=== PATIENT | female | born 1995 | race Caucasian/White ===

== ENCOUNTER 2017-05-10 13:33 | Emergency (ER) | payer OTHER ==
[2017-05-10 13:47] VITALS: BP 108/64; PULSE 76; RESP 16; TEMP 98.2; O2SAT 99
--- NOTE | 2017-05-10 14:08 | ED PDOC ---
Lower Extremity Pain/Injury Time Seen by Provider: 05/10/17 13:53 Chief Complaint (Nursing): Lower Extremity Problem/Injury Chief Complaint (Provider): Right ankle pain History Per: Patient History/Exam Limitations: no limitations Onset/Duration Of Symptoms: Days (1) Current Symptoms Are (Timing): Still Present Additional Complaint(s): Patient is a 22 y/o female with no significant past medical history presenting to the emergency department for right ankle pain and swelling since this morning after tripping over some stairs. Reports that it is painful to put weight on the foot. Denies taking pain medication, pain or injuries elsewhere, or other complaints. PCP: none provided. Past Medical History Reviewed: Historical Data, Nursing Documentation, Vital Signs Vital Signs: Last Vital Signs Temp 98.2 F 05/10/17 13:45 Pulse 76 05/10/17 13:45 Resp 16 05/10/17 13:45 BP 108/64 05/10/17 13:45 Pulse Ox 99 05/10/17 13:45 - Medical History PMH: No Chronic Diseases - Surgical History Surgical History: No Surg Hx - Family History Family History: States: No Known Family Hx - Living Arrangements Living Arrangements: With Family - Social History Current smoker - smoking cessation education provided: No Ex-Smoker (has not smoked in the last 12 months): No Alcohol: None Drugs: Denies - Home Medications Home Medications: Ambulatory Orders Medication Instructions Recorded Nitrofurantoin Macrocrystals 100 mg PO BID #14 cap 05/24/15 [Macrobid] Famotidine [Pepcid] 20 mg PO DAILY #14 tab 10/31/15 Amoxicillin/Clavulanate [Augmentin 1 tab PO BID #20 tab 05/09/16 875 MG-125 MG] Docosanol [Abreva] 1 cre TP 5XD #1 unit 05/09/16 - Allergies Allergies/Adverse Reactions: Allergies Allergy/AdvReac Type Severity Reaction Status Date / Time No Known Allergies Allergy Verified 05/09/16 14:40 Review of Systems ROS Statement: Except As Marked, All Systems Reviewed And Found Negative Musculoskeletal: Positive for: Other (right ankle pain and swelling) Physical Exam - Reviewed Nursing Documentation Reviewed: Yes Vital Signs Reviewed: Yes - Physical Exam Appears: Positive for: Well, Non-toxic, No Acute Distress Head Exam: Positive for: NORMAL INSPECTION Skin: Positive for: Normal Color. Negative for: Rash Eye Exam: Positive for: Normal appearance Extremity: Positive for: Normal ROM (full rom right ankle with pain), Swelling ( and tenderness of lateral malleolus of right ankle, nontender right foot) Neurologic/Psych: Positive for: Alert, Oriented (x3), Gait (steady). Negative for: Motor/Sensory Deficits - Laboratory Results Urine POC: Negative - ECG O2 Sat by Pulse Oximetry: 99 (RA) Pulse Ox Interpretation: Normal - Other Rad Right ankle x-ray X-Ray: Interpreted by Me, Viewed By Me X-Ray Interpretation: no fx, no dis Medical Decision Making Medical Decision Making: Time: 14:03 Initial impression: Right ankle injury Initial plan: ED Urine Motrin 600 mg PO Right ankle X-ray Reevaluation X-ray is negative for fracture or dislocation. Aircast applied. Crutches declined. Patient was instructed to ice and elevate affected area and take NSAIDs for pain as needed. She was referred to podiatry clinic for follow-up. Scribe Attestation: Documented by Simin Elmore, acting as a scribe for MATILDE Gaines. Provider Scribe Attestation: All medical record entries made by the Scribe were at my direction and personally dictated by me. I have reviewed the chart and agree that the record accurately reflects my personal performance of the history, physical exam, medical decision making, and the department course for this patient. I have also personally directed, reviewed, and agree with the discharge instructions and disposition. Procedures - Splinting Location: right ankle Pre-Made Type: aircast Pre-Proc Neuro Vasc Exam: normal Post-Proc Neuro Vasc Exam: normal Disposition - Clinical Impression Clinical Impression: Ankle sprain - Patient ED Disposition Is Patient to be Admitted: No Counseled Patient/Family Regarding: Studies Performed, Diagnosis, Need For Followup - Disposition Referrals: Podiatry Clinic [Outside] Disposition: Routine/Home Disposition Time: 14:57 Condition: STABLE Additional Instructions: Ice, rest and elevate affected area. Take [id number] Tylenol or Advil as needed for pain. Follow-up with podiatry clinic for any persistent symptoms. Instructions: Ankle Sprain (ED), Ankle Stirrup Splint (ED) Forms: [employer] (Amharic), [facility] ED School/Work Excuse
--- NOTE | 2017-05-10 14:59 | RAD ---
PROCEDURE: Right Ankle Radiographs. HISTORY: trauma COMPARISON: None FINDINGS: BONES: Bone alignment and mineralization are normal. There is no acute displaced fracture or bone destruction. JOINTS: Normal. Ankle mortise maintained. Talar dome intact SOFT TISSUES: There is mild lateral soft tissue swelling. OTHER FINDINGS: None. IMPRESSION: No acute fracture or dislocation. Mild lateral soft tissue swelling.
== END 2017-05-10 16:42 | disposition home or self-care (01) ==
LOC: H.ER 13:33
DX: S93.401A Sprain of unspecified ligament of right ankle, initial encounter (principal); W18.49XA Other slipping, tripping and stumbling without falling, initial encounter

== ENCOUNTER 2017-07-09 22:00 | Emergency (ER) | payer SELFPAY ==
[2017-07-09 22:09] VITALS: BP 121/63; PULSE 105; RESP 16; TEMP 97.1; O2SAT 97
[2017-07-09] MEDS ORDERED: Sodium Chloride 0.9% 1,000 ML IV STA (22:25)
--- NOTE | 2017-07-09 22:31 | ED PDOC ---
HPI: Abdomen Time Seen by Provider: 07/09/17 22:16 Chief Complaint (Nursing): Abdominal Pain Chief Complaint (Provider): Nausea, Vomiting, Diarrhea, Abdominal Pain History Per: Patient History/Exam Limitations: no limitations Onset/Duration Of Symptoms: Hrs (about 5 hours PIPE OR [employer]ST[employer]) Outside of [place] travel?: No Location Of Pain/Discomfort: Other ("Upper stomach") Associated Symptoms: denies: Fever, Chills Additional Complaint(s): Patient is a 22 y/o female with no past medical history who presents to the ED complaining of nausea, vomiting, diarrhea, and abdominal pain in her upper stomach since about 5 hours [employer]IPE [employer]. Patient states her son had similar symptoms and denies any fever, chills, or recent travel. She reports 5 episodes of non- bloody vomiting and 3 episodes of watery, non-bloody diarrhea. She also reports vomit was initially food colored, but is now just yellow. PCP: NO FAMILY PROVIDER Past Medical History Reviewed: Historical Data, Nursing Documentation, Vital Signs Vital Signs: Last Vital Signs Temp 97.1 F L 07/09/17 22:07 Pulse 105 H 07/09/17 22:07 Resp 16 07/09/17 22:07 BP 121/63 07/09/17 22:07 Pulse Ox 97 07/09/17 22:46 - Medical History PMH: No Chronic Diseases - Surgical History Surgical History: No Surg Hx - Family History Family History: States: No Known Family Hx, Unknown Family Hx - Home Medications Home Medications: Ambulatory Orders Medication Instructions Recorded Nitrofurantoin Macrocrystals 100 mg PO BID #14 cap 05/24/15 [Macrobid] Famotidine [Pepcid] 20 mg PO DAILY #14 tab 10/31/15 Amoxicillin/Clavulanate [Augmentin 1 tab PO BID #20 tab 05/09/16 875 MG-125 MG] Docosanol [Abreva] 1 cre TP 5XD #1 unit 05/09/16 Ondansetron [Zofran] 4 mg PO Q8H #12 tab 07/10/17 - Allergies Allergies/Adverse Reactions: Allergies Allergy/AdvReac Type Severity Reaction Status Date / Time No Known Allergies Allergy Verified 05/09/16 14:40 Review of Systems ROS Statement: Except As Marked, All Systems Reviewed And Found Negative Constitutional: Negative for: Fever, Chills Gastrointestinal: Positive for: Nausea, Vomiting, Abdominal Pain, Diarrhea Physical Exam - Reviewed Nursing Documentation Reviewed: Yes Vital Signs Reviewed: Yes - Physical Exam Appears: Positive for: No Acute Distress Head Exam: Positive for: ATRAUMATIC, NORMOCEPHALIC Skin: Positive for: Normal Color, Warm, Dry Eye Exam: Positive for: Normal appearance, EOMI, PERRL Neck: Positive for: Normal, Painless ROM, Supple Cardiovascular/Chest: Positive for: Regular Rate, Rhythm. Negative for: Murmur Respiratory: Positive for: Normal Breath Sounds. Negative for: Respiratory Distress Gastrointestinal/Abdominal: Positive for: Soft, Tenderness (Epigastrium). Negative for: Guarding, Rebound Back: Positive for: Normal Inspection. Negative for: L CVA Tenderness, R CVA Tenderness, Vertebral Tenderness Extremity: Positive for: Normal ROM. Negative for: Pedal Edema, Deformity Neurologic/Psych: Positive for: Alert, Oriented (x3). Negative for: Motor/ Sensory Deficits - Laboratory Results Result Diagrams: 07/09/17 22:54 07/09/17 22:54 - ECG O2 Sat by Pulse Oximetry: 97 (RA) Pulse Ox Interpretation: Normal Medical Decision Making Medical Decision Makin:24 Initial Impression: Viral gastroenteritis with Gastritis Initial Plan: --Labs --ED Urine --ED Urine Dipstick --Sodium Chloride 0.9% IV 1,000 mls/hr --Pantoprazole 40 mg IVP --Zofran Inj 4 mg IVP 00:30 Pt. is feeling much better, no longer nauseated, tolerating PO, abdominal pain has resolved. Instructed to keep up fluid intake and f/u in clinic. Return precautions discussed. Scribe Attestation: Documented by Francoise Marsh, acting as a scribe for Jackson Nova MD Provider Scribe Attestation: All medical record entries made by the Scribe were at my direction and personally dictated by me. I have reviewed the chart and agree that the record accurately reflects my personal performance of the history, physical exam, medical decision making, and the department course for this patient. I have also personally directed, reviewed, and agree with the discharge instructions and disposition. Disposition - Clinical Impression Clinical Impression: Gastroenteritis - Patient ED Disposition Is Patient to be Admitted: No - Disposition Referrals: [facility] [Outside] Disposition: Routine/Home Disposition Time: 00:32 Condition: IMPROVED Prescriptions: Ondansetron [Zofran] 4 mg PO Q8H #12 tab Instructions: Gastroenteritis (ED) Forms: [employer] (Ukrainian)
[2017-07-09 22:57] LABS: BASO % 0.2 % (0.0-2.0); EOS # 0.1 K/uL (0.0-0.7); EOS % 0.4 % (0.0-4.0); LYMPH # 0.7 K/uL (1.0-4.3); MEAN CELL VOLUME 86.4 fl (81.0-99.0); MEAN CORPUSCULAR HEMOGLOBIN 28.1 pg (27.0-31.0); MEAN CORPUSCULAR HGB CONC 32.5 g/dL (33.0-37.0); MEAN PLATELET VOLUME 8.4 fl (7.2-11.7); MONO # 0.9 K/uL (0.0-0.8); MONO % 6.2 % (0.0-10.0); NEUT # 12.6 K/uL (1.8-7.0); NEUT % 88.2 % (50.0-75.0); PLATELET COUNT 286 K/uL (130-400); RED CELL DISTRIBUTION WIDTH 13.4 % (11.5-14.5); WHITE BLOOD COUNT 14.3 K/uL (4.8-10.8)
[2017-07-09 23:18] LABS: GFR AFRICAN-AMERICAN > 60; NEUTROPHIL 84 % (42-75); TOTAL CELLS COUNTED 100
[2017-07-09 23:23] LABS: BLOOD UREA NITROGEN 16 mg/dl (7-17); CALCIUM 9.5 mg/dL (8.4-10.2); CARBON DIOXIDE 28 mmol/L (22-30); CHLORIDE 102 mmol/L (98-107); GLUCOSE,RANDOM 106 mg/dL (65-105); POTASSIUM 4.7 MMOL/L (3.6-5.0); SODIUM 139 mmol/l (132-148)
== END 2017-07-10 00:46 | disposition home or self-care (01) ==
LOC: H.ER 22:00
DX: K29.70 Gastritis, unspecified, without bleeding (principal)
CPT/HCPCS: 80048; 81025; 85025; 96361; 96374; 96375; 99283; C9113; J2405; J7040

== ENCOUNTER 2018-05-20 02:21 | Emergency (ER) | payer SELFPAY ==
[2018-05-20 03:15] VITALS: BMI 27.4
[2018-05-20 03:17] VITALS: BP 120/80; PULSE 67; RESP 18; TEMP 98; O2SAT 100
[2018-05-20] MEDS ORDERED: Sodium Chloride 0.9% 1,000 ML IV STA (03:32)
--- NOTE | 2018-05-20 03:42 | ED PDOC ---
HPI: Abdomen Time Seen by Provider: 05/20/18 03:21 Chief Complaint (Nursing): Abdominal Pain Chief Complaint (Provider): Epigastric pain History Per: Patient History/Exam Limitations: no limitations Onset/Duration Of Symptoms: Days Location Of Pain/Discomfort: Epigastric Quality Of Discomfort: Sharp, Burning Associated Symptoms: Nausea, Vomiting. 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 Past Medical History Vital Signs: Last Vital Signs Temp 98.0 F 05/20/18 03:15 Pulse 67 05/20/18 03:15 Resp 18 05/20/18 03:15 BP 120/80 05/20/18 03:15 Pulse Ox 100 05/20/18 03:15 - Family History Family History: States: Unknown Family Hx - Home Medications Home Medications: Ambulatory Orders Medication Instructions Recorded Nitrofurantoin Macrocrystals 100 mg PO BID #14 cap 05/24/15 [Macrobid] Famotidine [Pepcid] 20 mg PO DAILY #14 tab 10/31/15 Amoxicillin/Clavulanate [Augmentin 1 tab PO BID #20 tab 05/09/16 875 MG-125 MG] Docosanol [Abreva] 1 cre TP 5XD #1 unit 05/09/16 Ondansetron [Zofran] 4 mg PO Q8H #12 tab 07/10/17 Famotidine [Pepcid] 20 mg PO BID #28 tab 05/20/18 - Allergies Allergies/Adverse Reactions: Allergies Allergy/AdvReac Type Severity Reaction Status Date / Time No Known Allergies Allergy Verified 05/20/18 03:15 Physical Exam - Reviewed Nursing Documentation Reviewed: Yes Vital Signs Reviewed: Yes - Physical Exam Appears: Positive for: Well, Non-toxic, No Acute Distress Head Exam: Positive for: ATRAUMATIC, NORMAL INSPECTION, NORMOCEPHALIC Skin: Positive for: Normal Color, Warm, DRY Eye Exam: Positive for: Normal appearance ENT: Positive for: Normal ENT Inspection Neck: Positive for: Normal, Painless ROM Cardiovascular/Chest: Positive for: Regular Rate, Rhythm Respiratory: Positive for: CNT, Normal Breath Sounds Gastrointestinal/Abdominal: Positive for: Soft, Tenderness (epigastric ). Negative for: Normal Exam Back: Positive for: Normal Inspection Extremity: Positive for: Normal ROM Neurologic/Psych: Positive for: Alert, Oriented - Laboratory Results Result Diagrams: 05/20/18 04:00 05/20/18 04:00 - ECG O2 Sat by Pulse Oximetry: 100 Medical Decision Making Medical Decision Making: Pt reports feeling better on re-evaluation. Disposition - Clinical Impression Clinical Impression: Gastritis - Patient ED Disposition Is Patient to be Admitted: No Counseled Patient/Family Regarding: Diagnosis, Need For Followup, Rx Given - Disposition Referrals: [facility] [Outside] Disposition: Routine/Home Disposition Time: 05:40 Condition: GOOD Prescriptions: Famotidine [Pepcid] 20 mg PO BID #28 tab Instructions: Gastritis (DC) Forms: [facility] (Bahamian)
[2018-05-20 04:44] LABS: BASO % 0.3 % (0.0-2.0); EOS # 0.1 K/uL (0.0-0.7); EOS % 0.8 % (0.0-4.0); HEMOGLOBIN 12.6 g/dL (12.0-16.0); LYMPH # 2.5 K/uL (1.0-4.3); LYMPH % 16.3 % (20.0-40.0); MEAN CORPUSCULAR HEMOGLOBIN 28.2 pg (27.0-31.0); MEAN CORPUSCULAR HGB CONC 33.2 g/dL (33.0-37.0); MEAN PLATELET VOLUME 8.5 fl (7.2-11.7); MONO # 0.7 K/uL (0.0-0.8); MONO % 4.8 % (0.0-10.0); NEUT # 11.8 K/uL (1.8-7.0); NEUT % 77.8 % (50.0-75.0); RBC 4.47 Mil/uL (3.80-5.20); RED CELL DISTRIBUTION WIDTH 13.8 % (11.5-14.5); WHITE BLOOD COUNT 15.1 K/uL (4.8-10.8)
[2018-05-20 04:53] LABS: ALB/GLOB RATIO 1.2 (1.0-2.1); ALBUMIN 4.2 g/dL (3.5-5.0); ALT/SGPT 25 U/L (9-52); AST/SGOT 23 U/L (14-36); BLOOD UREA NITROGEN 15 mg/dl (7-17); CALCIUM 9.4 mg/dL (8.4-10.2); GFR NON-AFRICAN AMERICAN > 60; LIPASE 116 U/L (23-300)
== END 2018-05-20 06:21 | disposition home or self-care (01) ==
LOC: H.ER 02:21
DX: K29.70 Gastritis, unspecified, without bleeding (principal)
CPT/HCPCS: 80053; 81025; 83690; 85025; 96360; 99283; J2405; J7030

== ENCOUNTER 2018-08-14 11:48 | Emergency (ER) | payer SELFPAY ==
[2018-08-14 20:58] LABS: SQUAMOUS EPITHIAL 5 /hpf (0-5); URINE BILIRUBIN NEGATIVE (NEGATIVE); URINE BLOOD NEGATIVE (NEGATIVE); URINE CLARITY SLIGHTY-CLOUDY (Clear); URINE COLOR YELLOW (YELLOW); URINE GLUCOSE (UA) NEG (NEGATIVE); URINE LEUKOCYTE ESTERASE NEG Leu/uL (Negative); URINE PROTEIN NEGATIVE (NEGATIVE)
== END 2018-08-14 15:40 | disposition home or self-care (01) ==
LOC: H.ER 11:48
DX: H66.91 Otitis media, unspecified, right ear (principal)

== ENCOUNTER 2018-08-16 17:53 | Emergency (ER) | payer BC ==
[2018-08-16 17:53] VITALS: BMI 27.4
[2018-08-16 19:42] VITALS: RESP 18; O2SAT 100
--- NOTE | 2018-08-16 21:29 | ED PDOC ---
HPI: Fever Time Seen by Provider: 08/16/18 19:59 Fever Onset Was: 08/16/18 The Fever Was Measured: Oral Recent Sick Contacts: No Symptoms Associated With Fever: None Additional Comments: Pt presents to the ED complaining of fever; pt is afebrile at 97.8. She was seen two days ago in the ED and treated for Otitis Media with augmentin. Pt indicates that she has taken the medicatin for two days and is not getting better; pt denies NVD or any other symptoms including body ache Past Medical History Reviewed: Historical Data, Nursing Documentation, Vital Signs Vital Signs: Last Vital Signs Temp 98.5 F 08/16/18 19:40 Pulse 80 08/16/18 19:40 Resp 18 08/16/18 19:40 BP 112/73 08/16/18 19:40 Pulse Ox 100 08/16/18 19:40 - Family History Family History: States: Unknown Family Hx - Home Medications Home Medications: Ambulatory Orders Medication Instructions Recorded Nitrofurantoin Macrocrystals 100 mg PO BID #14 cap 05/24/15 [Macrobid] Famotidine [Pepcid] 20 mg PO DAILY #14 tab 10/31/15 Amoxicillin/Clavulanate [Augmentin 1 tab PO BID #20 tab 05/09/16 875 MG-125 MG] Docosanol [Abreva] 1 cre TP 5XD #1 unit 05/09/16 Ondansetron [Zofran] 4 mg PO Q8H #12 tab 07/10/17 Famotidine [Pepcid] 20 mg PO BID #28 tab 05/20/18 - Allergies Allergies/Adverse Reactions: Allergies Allergy/AdvReac Type Severity Reaction Status Date / Time No Known Allergies Allergy Verified 08/16/18 19:40 Review of Systems ROS Statement: Except As Marked, All Systems Reviewed And Found Negative ENT: Positive for: Ear Pain - ECG O2 Sat by Pulse Oximetry: 100 Disposition - Clinical Impression Clinical Impression: Otitis media - Patient ED Disposition Is Patient to be Admitted: No Doctor Will See Patient In The: Office Counseled Patient/Family Regarding: Diagnosis - Disposition Referrals: [facility] [Outside] Disposition: Routine/Home Disposition Time: 22:45 Condition: STABLE Additional Instructions: Pt should continue taking antibiotics prescribed two days ago Tylenol 650mg every 8 hours Ibuprofen 600 mg every 6 hours Follow up with PMD or referral as indicated Instructions: Ear Infections (Otitis Media), Ear Infections (Otitis Media) (DC) Forms: [employer] [facility] (Urdu)
[2018-08-16 22:16] VITALS: BP 116/74; PULSE 83; TEMP 98.3
== END 2018-08-16 22:16 | disposition home or self-care (01) ==
LOC: H.ER 17:53
DX: H66.90 Otitis media, unspecified, unspecified ear (principal)